=== PATIENT | female | born 1995 | race Caucasian/White ===

== ENCOUNTER 2017-03-23 01:09 | Emergency (ER) | payer MEDICAID, OTHER ==
[~2017-03-23] VITALS: Ht 160 cm; Wt 64.5 kg
[2017-03-23 01:12] VITALS: Ht 160 cm; Wt 64.5 kg
[2017-03-23] MEDS ORDERED: ACETAMINOPHEN 500 MG TAB PO STA (04:20)
--- NOTE | 2017-03-23 04:31 | ERD ---
ER Documentation Chief Complaint Date/Time DATE: 03/23/17 TIME: 04:30 Chief Complaint 4 wks , vag bleeding today (CAITY MATA NP) HPI 21-year-old female presents to emergency department for complaints of vaginal bleeding and pelvic pain started today. Patient approximately 4 weeks , 1 para 0 abortion0. Patient LMP 01/18/2017. Patient states she started to have vaginal bleeding today, started a spotting, no it got worse. Patient complaining of pelvic pain and cramping pain 4/10 scale, accompanying her symptoms. She did not take any medication stop his symptoms. (CAITY MATA NP) ROS All systems reviewed and are negative except as per history of present illness. (CAITY MATA NP) Medications Home Meds Reported Medications [none] Unknown Strength No Conflict Check 03/23/17 Allergies Allergies: Coded Allergies: No Known Allergy (Unverified , 03/05/15) PMhx/Soc Medical and Surgical Hx: pt denies Medical Hx, pt denies Surgical Hx History of Surgery: No Anesthesia Reaction: No Hx Neurological Disorder: No Hx Respiratory Disorders: No Hx Cardiac Disorders: No Hx Psychiatric Problems: No Hx Miscellaneous Medical Probl: No Hx Alcohol Use: No Hx Substance Use: No Hx Tobacco Use: No (CAITY MATA NP) FmHx Family History: No coronary disease, No diabetes, No other (CAITY MATA NP) Physical Exam Vitals Vital Signs Date Time Temp Pulse Resp B/P Pulse Ox O2 Delivery O2 Flow Rate FiO2 03/23/17 01:12 98.3 88 20 122/70 100 (CARLEY JACOME PA-C) Physical Exam GENERAL: The patient is well developed and appropriate for usual state of health, in no apparent distress. CHEST: Clear to auscultation bilaterally. There are no rales, wheezes or rhonchi. HEART: Regular rate and rhythm. No murmurs, clicks, rubs or gallops. No S3 or S4. ABDOMEN: Soft, nontender and nondistended. Good bowel sounds. No rebound or guarding. No gross peritonitis. No gross organomegaly or masses. No Grimes sign or McBurney point tenderness. BACK: No midline or flank tenderness. EXTREMITIES: Equal pulses bilaterally. There is no peripheral clubbing, cyanosis or edema. No focal swelling or erythema. Full range of motion. Grossly neurovascularly intact. NEURO: Alert and oriented. Cranial nerves 2-12 intact. Motor strength in all 4 extremities with 5/5 strength. Sensation grossly intact. Normal speech and gait. SKIN: There is no apparent rash or petechia. The skin is warm and dry. HEMATOLOGIC AND LYMPHATIC: There is no evidence of excessive bruising or lymphedema. No gross cervical, axillary, or inguinal lymphadenopathy. VAGINAL: Small amount of blood in the vaginal vault. The cervical os is closed. No adnexal tenderness or cervical motion tenderness noted. (CAITY MATA NP) Results 24 hrs Laboratory Tests Test 03/23/17 04:30 White Blood Count 12.710^3/ul Red Blood Count 4.5810^6/ul Hemoglobin 13.8g/dl Hematocrit 40.4% Mean Corpuscular Volume 88.2fl Mean Corpuscular Hemoglobin 30.1pg Mean Corpuscular Hemoglobin Concent 34.2g/dl Red Cell Distribution Width 12.5% Platelet Count 20448^3/UL Mean Platelet Volume 9.6fl Neutrophils % 76.6% Lymphocytes % 17.3% Monocytes % 5.4% Eosinophils % 0.2% Basophils % 0.2% Nucleated Red Blood Cells % 0.0/100WBC Neutrophils # 9.710^3/ul Lymphocytes # 2.210^3/ul Monocytes # 0.710^3/ul Eosinophils # 0.010^3/ul Basophils # 0.010^3/ul Nucleated Red Blood Cells # 0.010^3/ul Urine Color LT. RED Urine Clarity CLEAR Urine pH 5.5 Urine Specific [place] 1.010 Urine Ketones NEGATIVE Urine Nitrite NEGATIVE Urine Bilirubin NEGATIVE Urine Urobilinogen 0.2 E.U./dL Urine Leukocyte Esterase NEGATIVE Urine Microscopic RBC >200/HPF Urine Microscopic WBC 0-2/HPF Urine Hemoglobin 3+ Urine Glucose NEGATIVE% Urine Total Protein TRACE Beta HCG, Quantitative 4025.9mIU/ml Current Medications Medications (Trade) Dose Ordered Sig/Inés Route PRN Reason Start Time Stop Time Status Last Admin Dose Admin Acetaminophen (Tylenol Tab) 500 mg ONCE STAT PO 03/23/17 04:20 03/23/17 04:22 DC 03/23/17 04:34 (CARLEY JACOME PA-C) Results 24 hrs Patient was given medication for pain here in emergency department, after treatment, patient verbalized feeling much better. Patient's pain is improved. PROCEDURE: US OB. CLINICAL INDICATION: Vaginal bleeding in . TECHNIQUE: Transabdominal and endovaginal imaging of the gravid uterus is available for review COMPARISON: None available FINDINGS: There is a single intrauterine with a crown-rump length of 1.23 cm, giving an estimated gestational age of 6 weeks 2 days by ultrasound criteria. No heart tones are detected. The gestational sac is seen within the lower uterine segment/cervix. No subchorionic hemorrhage is identified. The ovaries are not well visualized. IMPRESSION: Single intrauterine with an estimated gestational age of 6 weeks 2 days by ultrasound criteria. No heart tones are detected. The gestational sac is located within the lower uterine segment/cervix. Findings are suspicious for early failed . RPTAT: HH .Bushra Whelan MD, MD Date Time Electronically viewed and signed by .Bushra Whelan MD, MD on 03/23/2017 05 :21 .G/ CC: CAITY MATA NP (CAITY MATA NP) Procedures/MDM Medical Decision Making: Patients vaginal bleeding is most likely consistent of possible threatened . Patient does not show any evidence of hypovolemic shock. Patients hemoglobin and hematocrit is stable. There is low suspicion for ectopic . GRIS results show intrauterine with out heart tone and is in the lower cervical segment possible indicating early failed . BetaHCG Quantitative is appropriate for The patient is Rh+, does not need RhoGAM this time. There is no signs of symptoms of dehydration. There is low suspicion for sepsis. Patient appears well and is hemodynamically stable. Disposition: Home. Condition: Stable Instructions: Patient is advised to do bed rest, avoid heavy lifting, and avoid having sex until cleared by OB doctor. Patient is advised to follow up with OB doctor or here at the ER in 48 hours for reevaluation of symptoms, repeat beta HCG quantitative and ultrasound. Patient is advised that is symptoms are worst, severe bleeding, dizziness, severe abdominal pain, fever, worst signs and symptoms to return to the emergency department immediately. (CAITY MATA NP) 630AM:Patient was signed out to me by VIRI Mata, pending Rh status. Patient was noted to be O+. RhoGam was not given. Patient was advised to follow-up in 1-2 days for repeat beta-hCG and/or repeat ultrasound. Patient was advised to follow-up with her [employer]. DISCHARGE: At this time, patient is stable for discharge and outpatient management. I have instructed the patient to follow-up with his/her primary care physician in 1-2 days. I have discussed with the patient the possibility of needing to see a specialist for further workup and imaging studies if symptoms persist. I have instructed the patient to promptly return to the ER for any new or worsening symptoms including increased pain, fever, nausea, vomiting, weakness or LOC. The patient and/or family expressed understanding of and agreement with this plan. All questions were answered. Home care instructions were provided. (CARLEY JACOME PA-C) Departure Diagnosis: Primary Impression: Vaginal bleeding in patient at less than 20 weeks gestation Additional Impression: Intrauterine Condition: Stable Patient Instructions: Bleeding During Early Additional Instructions: Patient is advised to do bed rest, avoid heavy lifting, and avoid having sex until cleared by OB doctor. Patient is advised to follow up with OB doctor or here at the ER in 48 hours for reevaluation of symptoms, repeat beta HCG quantitative and ultrasound. Patient is advised that is symptoms are worst, severe bleeding, dizziness, severe abdominal pain, fever, worst signs and symptoms to return to the emergency department immediately. CAITY MATA NP March 23, 2017 04:31 CARLEY JACOME PA-C March 23, 2017 06:46 CAITY MATA NP March 23, 2017 04:31 CARLEY JACOME PA-C March 23, 2017 06:46
[2017-03-23 04:44] LABS: ADD SCAN DIFF NO
[2017-03-23 04:50] LABS: ADD UMIC YES; URINE BILIRUBIN (Dip) NEGATIVE (NEGATIVE); URINE BLOOD (Dip) 3+ (NEGATIVE); URINE COLOR LT. RED (YELLOW); URINE GLUCOSE (Dip) NEGATIVE (NEGATIVE); URINE KETONES (Dip) NEGATIVE (NEGATIVE); URINE LEUKOCYTE ESTERASE (Dip) NEGATIVE (NEGATIVE); URINE NITRITE (Dip) NEGATIVE (NEGATIVE); URINE TOTAL PROTEIN (Dip) TRACE (NEGATIVE); URINE UROBILINOGEN (Dip) 0.2 E.U./dL (0.1-1.0)
[2017-03-23 04:51] LABS: BASOPHILS % 0.2 % (0.0-2.0); EOSINOPHILS % 0.2 % (0.0-7.0); HEMATOCRIT 40.4 % (37.0-47.0); HEMOGLOBIN 13.8 g/dl (12.0-16.0); LYMPHOCYTES # 2.2 10^3/ul (0.8-2.9); LYMPHOCYTES % 17.3 % (15.0-51.0); MEAN CORPUSCULAR HEMOGLOBIN 30.1 pg (29.0-33.0); MEAN CORPUSCULAR HGB CONC 34.2 g/dl (32.0-37.0); MEAN CORPUSCULAR VOLUME 88.2 fl (82.0-101.0); MEAN PLATELET VOLUME 9.6 fl (7.4-10.4); MONOCYTE # 0.7 10^3/ul (0.3-0.9); MONOCYTES % 5.4 % (0.0-11.0); NEUTROPHIL # 9.7 10^3/ul (1.6-7.5); NEUTROPHILS % 76.6 % (39.0-77.0); PLATELET COUNT 317 10^3/UL (140-415); RED BLOOD COUNT 4.58 10^6/ul (4.20-5.40); RED CELL DISTRIBUTION WIDTH 12.5 % (11.5-14.5); WHITE BLOOD COUNT 12.7 10^3/ul (4.8-10.8)
[2017-03-23 05:01] LABS: URINE RBCS >200 /HPF (0)
--- NOTE | 2017-03-23 05:21 | RADRPT ---
PROCEDURE: US OB. CLINICAL INDICATION: Vaginal bleeding in . TECHNIQUE: Transabdominal and endovaginal imaging of the gravid uterus is available for review COMPARISON: None available FINDINGS: There is a single intrauterine with a crown-rump length of 1.23 cm, giving an estimated ge stational age of 6 weeks 2 days by ultrasound criteria. No heart tones are detected. The gest ational sac is seen within the lower uterine segment/cervix. No subchorionic hemorrhage is identifie d. The ovaries are not well visualized. IMPRESSION: Single intrauterine with an estimated gestational age of 6 weeks 2 days by ultrasound crit eria. No heart tones are detected. The gestational sac is located within the lower uterine s egment/cervix. Findings are suspicious for early failed . RPTAT: HH .Bushra Whelan MD, MD Date Time Electronically viewed and signed by .Bushra Whelan MD, on 03/23/2017 05:21 .G/
[2017-03-23 07:04] VITALS: BP 118/67; PULSE 78; RESP 20; TEMP 98.3
== END 2017-03-23 07:05 | disposition home or self-care (01) ==
LOC: FTE 01:09
DX: O20.9 Hemorrhage in early pregnancy, unspecified (principal); R10.2 Pelvic and perineal pain; Z3A.01 Less than 8 weeks gestation of pregnancy
CPT/HCPCS: 76801; 76817; 81001; 84702; 85025; 86900; 86901; Z7610; 36415; 81003

== ENCOUNTER 2018-12-02 10:52 | Outpatient (CLI) | payer OTHER ==
[~2018-12-02] VITALS: Ht 157.5 cm; Wt 86.0 kg
[2018-12-02 11:24] VITALS: Ht 157.5 cm; Wt 86.0 kg
[2018-12-02 11:25] VITALS: BP 111/65; PULSE 85; RESP 20
--- NOTE | 2018-12-02 12:54 | PN ---
Triage Information Date/Time 12/02/2018 Reason for visit: DFM Weeks of Gestation 39 /Para Diabetes: none Hypertention: none Additional information 23 YO with IUP 39 + weeks who reported to L&D for decreased FM. she denies LOF per vagina or vaginal bleeding or UCs. her cervix is long and closed and she is very motivated to go home if NST and JASSI are reassuring and avoid IOL at this time. Objective Vital Signs Date Temp Pulse Resp B/P (MAP) Pulse Ox O2 O2 Flow FiO2 Time Delivery Rate 12/02/18 98.0 85 20 111/65 Room Air 11:25 (80) Heart Rate Comments category one Contractions: None Disposition: Discharge Assessment/Plan IUP 39 + weeks DFM she is motivated to avoid IOL plan is NST and JASSI NILDA STOVALL MD Dec 02, 2018 12:54
--- NOTE | 2018-12-02 13:13 | TRIAGE ---
OB Triage Datetime Report Generated by CPN: 12/02/2018 13:13 Datetime: 12/02/2018 11:16 EGA: 39.2 Arrived By: Ambulatory Arrived From: Home Chief Complaint: NO MOVEMENT SINCE 12/01 AT 2200 Movement: Decreased Rupture of Membranes: Denies Vaginal Discharge: Denies Recent Sexual Intercouse: Denies Abdominal Trauma: Not Applicable Provider Notified: YASHAPOUR Initial Plan: EFM,CALL DR YASHAPOUR Datetime: 12/02/2018 11:15 Maternal Assessment Level of Consciousness: Fully Conscious DTR's/Clonus: DTRs 2+; No Clonus Headache: Denies Blurred Vision: No Respiratory Effort: Unlabored; Regular Rhythm; Equal Expansion Breath Sounds, Left: Clear and Equal Breath Sounds, Right: Clear and Equal Nausea/Vomiting: Denies RUQ Epigastric Pain: Denies Facial Edema: None Temperature Route: Axillary Fall Risk Assessment History of Falling: (0) No Secondary Diagnosis: (0) No Ambulatory Aid: (0) Bedrest/Nurse Assist IV Therapy: (0) No Gait: (0) Normal/Bedrest/Immobile Mental Status: (0) Oriented to Own Ability Fall Score: 0 Fall Risk Score Definition: No Risk: No action required Datetime: 12/02/2018 11:00 Maternal Assessment Level of Consciousness: Fully Conscious DTR's/Clonus: DTRs 2+ Headache: Denies Blurred Vision: No Nausea/Vomiting: Denies RUQ Epigastric Pain: Denies Facial Edema: None Labor Evaluation Frequency: NONE Pattern: Normal: <= 5 Contractions in 10 Minutes Resting Tone [place]: Relaxed Heart Rate FHR Baseline Rate: 155 Monitor Mode: External US FHR Baseline Changes: No Baseline Change Variability: Moderate 6-25 bpm Accelerations: 10X10 Decelerations: None Category: Category I Pain Assessment Pain Scale: 0 Pain Presence: None/Denies Pain Location: Abdomen Pain Goal: 3 Datetime: 12/02/2018 10:50 Time of Arrival: 12/02/2018 10:50
== END 2018-12-02 13:00 | disposition home or self-care (01) ==
LOC: L-D 10:52 → OBT 10:52
PROVIDERS: ATTEND Specialist
DX: O36.8130 Decreased fetal movements, third trimester, not applicable or unspecified (principal); Z3A.39 39 weeks gestation of pregnancy
CPT/HCPCS: 76815; 76818; G0463

== ENCOUNTER 2018-12-06 07:18 | Outpatient (CLI) | payer OTHER ==
[~2018-12-06] VITALS: Ht 157.5 cm; Wt 86.3 kg
[2018-12-06 07:23] VITALS: Ht 157.5 cm; Wt 86.3 kg
[2018-12-06 07:24] VITALS: BP 113/60; PULSE 73; RESP 18
[2018-12-06] MEDS ORDERED: PREN-99 PO (07:27)
--- NOTE | 2018-12-06 08:55 | HP ---
Date/Time of Note Date/Time of Note DATE: 12/06/18 TIME: 08:53 OB - History Hx of Present Free Text/Dictation 23 YO G1 with IUP at 39.6 weeks reports with CC LOF per vagina earlier today, but not since then. she denies UCs or vaginal bleeding. she reports good FM. she does not want IOL, unless medically necessary. on exam pooling and Nitrazine was negative Care: Good Care Ultrasounds: Normal mid trimester US Obstetrical Complications: None Medical Complications: None Past Family/Social History * Past Medical, Surgical, Family and Obstetric Histories reviewed from chart. OB Admission Exam Vital Signs Vital Signs Vital Signs Date Temp Pulse Resp B/P (MAP) Pulse Ox O2 O2 Flow FiO2 Time Delivery Rate 12/06/18 98.8 73 18 113/60 07:24 (77) Physical Exam HEENT: WNL Heart: Rhythm Normal Lungs: Clear, Equal Abdomen: WNL Extremities: Normal Reflexes: Normal OB Assessment/Plan Other Assessment: IUP 39.6 weeks r/o SROM. Induction Method: other (will do ROM+) NILDA STOVALL MD Dec 06, 2018 08:55
--- NOTE | 2018-12-06 10:31 | TRIAGE ---
OB Triage Datetime Report Generated by CPN: 12/06/2018 10:31 Datetime: 12/06/2018 10:12 Labor Evaluation Frequency: x4 Monitor Mode: External Duration (sec)2399: 50-110 Quality: Mild Resting Tone [place]: Relaxed Heart Rate FHR Baseline Rate: 130 FHR Baseline Changes: No Baseline Change Variability: Moderate 6-25 bpm Accelerations: 15X15 Decelerations: None Category: Category I Datetime: 12/06/2018 09:29 Labor Evaluation Frequency: x4 Monitor Mode: External Duration (sec)2399: 70-90 Quality: Mild Pattern: Normal: <= 5 Contractions in 10 Minutes Resting Tone [place]: Relaxed Contraction Comments: pt denies feeling UCs Heart Rate FHR Baseline Rate: 135 Monitor Mode: External US FHR Baseline Changes: No Baseline Change Variability: Moderate 6-25 bpm Accelerations: 15X15 Decelerations: None Category: Category I Datetime: 12/06/2018 08:29 Labor Evaluation Frequency: x4 Monitor Mode: External Duration (sec)2399: 50-90 Quality: Mild Resting Tone [place]: Relaxed Heart Rate FHR Baseline Rate: 140 Monitor Mode: External US FHR Baseline Changes: No Baseline Change Variability: Moderate 6-25 bpm Accelerations: 15X15 Decelerations: None Category: Category I Datetime: 12/06/2018 07:30 Stage of : OB Triage Assessment Type: Triage Maternal Assessment Level of Consciousness: Fully Conscious DTR's/Clonus: DTRs 2+; No Clonus Headache: Denies Blurred Vision: No Respiratory Effort: Unlabored; Regular Rhythm; Equal Expansion Breath Sounds, Left: Clear and Equal Breath Sounds, Right: Clear and Equal Nausea/Vomiting: Denies RUQ Epigastric Pain: Denies Lower Extremities Edema: None Degree: None Upper Extremities Edema: None Degree: None Facial Edema: None Temperature Route: Oral Fall Risk Assessment History of Falling: (0) No Secondary Diagnosis: (0) No Ambulatory Aid: (0) Bedrest/Nurse Assist IV Therapy: (0) No Gait: (0) Normal/Bedrest/Immobile Mental Status: (0) Oriented to Own Ability Fall Score: 0 Fall Risk Score Definition: No Risk: No action required Labor Evaluation Frequency: x1 Monitor Mode: External Duration (sec)2399: 50 Quality: Mild Resting Tone [place]: Relaxed Heart Rate FHR Baseline Rate: 135 Monitor Mode: External US FHR Baseline Changes: No Baseline Change Variability: Moderate 6-25 bpm Accelerations: 15X15 Decelerations: None Category: Category I Pain Assessment Pain Scale: 0 Pain Presence: None/Denies Pain Type: N/A Datetime: 12/02/2018 12:58 Time of Arrival: 12/06/2018 07:13 EGA: 39.6 Arrived By: Ambulatory Arrived From: Home Chief Complaint: leaking from 0530 am Movement: Present Contractions: Denies/Absent Rupture of Membranes: Ruptured Vaginal Bleeding: None Vaginal Discharge: Denies Recent Sexual Intercouse: Denies Abdominal Trauma: Not Applicable Patient Complaints: None Initial Plan: ext FM Datetime: 12/02/2018 11:16 EGA: 39.2 Datetime: 12/02/2018 11:15 Fall Score: 0 Fall Risk Score Definition: No Risk: No action required
== END 2018-12-06 10:25 | disposition home or self-care (01) ==
LOC: OBT 07:18 → L-D 07:18 → OBT 10:25
PROVIDERS: ATTEND Specialist
DX: O41.93X0 Disorder of amniotic fluid and membranes, unspecified, third trimester, not applicable or unspecified (principal); Z3A.39 39 weeks gestation of pregnancy
CPT/HCPCS: 84112; Z7500; G0463

== ENCOUNTER 2018-12-09 08:17 | Inpatient (IN) | payer OTHER ==
[~2018-12-09] VITALS: Ht 157.5 cm; Wt 86.5 kg
[~2018-12-09 08:17] MED LIST: PREN-99 PO
[2018-12-09 08:32] VITALS: BP 109/65; PULSE 69; RESP 18
[2018-12-09 08:33] VITALS: Ht 157.5 cm; Wt 86.5 kg
--- NOTE | 2018-12-09 09:24 | TRIAGE ---
OB Triage Datetime Report Generated by CPN: 12/09/2018 09:24 Datetime: 12/09/2018 09:00 Stage of : OB Triage Level of Consciousness: Fully Conscious Frequency: 3-7 Monitor Mode: External Duration (sec)2399: 90-180 Quality: Moderate Resting Tone [place]: Relaxed FHR Baseline Rate: 135 Monitor Mode: External US Variability: Moderate 6-25 bpm Accelerations: 15X15 Decelerations: None Category: Category I Pain Scale: 7 Pain Presence: Intermittent Pain Type: Cramping Pain Location: Abdomen Pain Goal: 3 Pain Relief Measures: Comfort Measures Membrane Status: Intact Vaginal Bleeding: None Datetime: 12/09/2018 08:38 Dilatation (cms): 2.0 Effacement (%): 70 Station: -3 Exam By: mary Vaginal Bleeding: None Cervix, Consistency: Soft Cervix, Position: Posterior Datetime: 12/09/2018 08:35 Assessment Type: Triage Level of Consciousness: Fully Conscious DTR's/Clonus: DTRs 2+; No Clonus Headache: Denies Blurred Vision: No Respiratory Effort: Unlabored; Regular Rhythm; Equal Expansion Breath Sounds, Left: Clear and Equal Breath Sounds, Right: Clear and Equal Nausea/Vomiting: Denies RUQ Epigastric Pain: Denies Lower Extremities Edema: None Degree: None Upper Extremities Edema: None Degree: None Facial Edema: None History of Falling: (0) No Secondary Diagnosis: (0) No Ambulatory Aid: (0) Bedrest/Nurse Assist IV Therapy: (0) No Gait: (0) Normal/Bedrest/Immobile Mental Status: (0) Oriented to Own Ability Fall Score: 0 Fall Risk Score Definition: No Risk: No action required Datetime: 12/09/2018 08:34 Time of Arrival: 12/09/2018 08:12 EGA: 40.2 Arrived By: Ambulatory Arrived From: Home Chief Complaint: PT HERE C/O UC'S Movement: Present Contractions: Irregular Rupture of Membranes: Denies Vaginal Bleeding: None Vaginal Discharge: Present Recent Sexual Intercouse: Denies Abdominal Trauma: Not Applicable Patient Complaints: Contractions; Cramping; Back Pain Time Provider Notified: 12/09/2018 09:07 Provider Notified: MICAELA Initial Plan: SVE/BPP Datetime: 12/09/2018 08:28 Monitor Mode: External Monitor Mode: External US
[2018-12-09] MEDS: LACTATED RINGER'S 1,000 ML IV SCH ×3 (09:49→23:11)
[2018-12-09] MEDS ORDERED: CARBOPROST 250 MCG INJ IM PRN (10:00)
[2018-12-09] MEDS ORDERED: LIDOCAINE 1% (MPF) 30 ML INJ INJ PRN (10:00)
[2018-12-09] MEDS ORDERED: METHYLERGONOVINE 0.2 MG INJ IM PRN (10:00)
[2018-12-09] MEDS ORDERED: IBUPROFEN 600 MG TAB PO PRN (10:00)
[2018-12-09] MEDS ORDERED: MISOPROSTOL 200 MCG TAB PR PRN (10:00)
[2018-12-09] MEDS ORDERED: OXYTOCIN 30 UNITS/LR 500 ML IV SCH ×3 (10:00→17:30)
[2018-12-09] MEDS ORDERED: OXYTOCIN 30 UNITS/LR 500 ML IV PRN (10:00)
[2018-12-10] MEDS: BUTORPHANOL 2 MG INJ IV PRN ×2 (04:13→06:29)
[2018-12-10] MEDS: LACTATED RINGER'S 1,000 ML IV SCH ×2 (07:30→17:40)
--- NOTE | 2018-12-10 10:36 | HP ---
Date/Time of Note Date/Time of Note DATE: 12/10/18 TIME: 10:29 OB - History Hx of Present Free Text/Dictation 23y.o A1 here at triage in early labor at 40w2d with intact membrane Initial VE 2/70/-3 EFM CAT I tracing, uc 3-7 min Had unevenful course GBS neg admitted for expecatant mamagement poss augmentation Chief Complaint: u.c Estimated Due Date: Dec 07, 2018 : 2 Para: 0 Spontaneous : 1 Therapeutic : 0 Care: Good Care Ultrasounds: Normal mid trimester US Obstetrical Complications: None Medical Complications: None Past Family/Social History * Past Medical, Surgical, Family and Obstetric Histories reviewed from chart. Blood Type: O+ Rubella: immune RPR/VDRL: Negative GBS Status: Negative HBsAG: Negative OB Admission Exam Vital Signs Vital Signs Vital Signs Date Temp Pulse Resp B/P (MAP) Pulse Ox O2 O2 Flow FiO2 Time Delivery Rate 12/09/18 97.7 69 18 109/65 Room Air 08:32 (80) Physical Exam HEENT: WNL Heart: Rhythm Normal Lungs: Clear, Equal Abdomen: WNL Extremities: Normal Reflexes: Normal Cervical Dilatation: 2cm Effacement: 75% Station: -2 Membranes: Intact Amniotic Fluid: Unevaluable Heart Rate: 130's Accelerations: Accelerations Present Decelerations: No Decelerations Varibility: Moderate Contractions on Admission: < 5 Minutes Apart Intensity: Mild Last 72 hours Lab Results CBC & BMP 12/09/18 09:35 OB Assessment/Plan Other Assessment: IUP 40w2d in early labor Plan: Expectant Management, Other (pitocin augmentation) TOI HINOJOSA MD Dec 10, 2018 10:36
[2018-12-10] MEDS ORDERED: ERYTHROMYCIN 1 GM OPH OINT ONE (11:35)
[2018-12-10] MEDS ORDERED: PHYTONADIONE 1 MG/0.5 ML SYG ONE (11:35)
[2018-12-10 12:00] VITALS: BP 104/61; PULSE 78; RESP 18
[2018-12-10] MEDS ORDERED: OXYTOCIN 30 UNITS/LR 500 ML IV SCH (12:04)
[2018-12-10 12:30] VITALS: BP 115/60; PULSE 70; RESP 18
[2018-12-10] MEDS ORDERED: METHYLERGONOVINE 0.2 MG INJ IM PRN (12:30)
[2018-12-10] MEDS ORDERED: MISOPROSTOL 200 MCG TAB PR PRN (12:30)
[2018-12-10] MEDS ORDERED: NACL 0.9% 3 ML SYG IV SCH (12:30)
[2018-12-10] MEDS ORDERED: BENZOCAINE 20% 56 ML SPRAY TOP PRN (12:30)
[2018-12-10] MEDS: IBUPROFEN 600 MG TAB PO SCH ×3 (12:30→23:57)
[2018-12-10] MEDS ORDERED: CARBOPROST 250 MCG INJ IM PRN (12:30)
[2018-12-10] MEDS ORDERED: LANOLIN HPA 1 PKT TOP PRN (12:30)
[2018-12-10] MEDS ORDERED: WITCH HAZEL/GLYCERIN PAD PR PRN (12:30)
[2018-12-10] MEDS ORDERED: OXYTOCIN 30 UNITS/LR 500 ML IV PRN (12:30)
[2018-12-10 15:55] VITALS: BP 115/71; PULSE 80; RESP 18
--- NOTE | 2018-12-10 16:13 | LDN ---
Date/Time of Note Date/Time of Note DATE: 12/10/18 TIME: 16:10 Delivery Summary of normal female infant Weeks of Gestation 40w3d Placenta Delivered: Spontaneously Meconium: none Episiotomy: No Perineal laceration: 2 Laceration repair: 00ch gut Anesthesia type: Local Estimated blood loss: 200 Sponge & Needle done & correct: Yes All needle counts correct: Yes Any foreign bodies felt in the: No Infant Delivery Information Sex Infant Sex: female Apgars 1 Minute: 9 5 Minute: 9 Suctioning Nose & mouth suctioned at delfin: Yes Delee suction performed: No Umbilical Cord Umbilical cord with: 3 Vessels Cord presentations: nuchal cord Nuchal cord present X: 1 TOI HINOJOSA MD Dec 10, 2018 16:13
--- NOTE | 2018-12-10 17:04 | NUR ---
EOSS: PT RECEIVED FROM LD AT 1200, V/S STABLE AND WNL, NO C/O PAIN AFTER TRANSFERRED TO THIS FLOOR, FUNDUS FIRM, VAGINAL BLEEDING WNL, POST DELIVERY VOIDING *2 WITHOUT DIFFICULTY, BREAST FED BABY BONDING WELL WITH BABY
[2018-12-10 19:35] VITALS: BP 98/54; PULSE 89; RESP 18
[2018-12-11] VITALS: BP 105/55; PULSE 90; RESP 18
[2018-12-11] MEDS: LACTATED RINGER'S 1,000 ML IV SCH (01:40)
[2018-12-11 04:40] VITALS: BP_SYST 52; PULSE 86; RESP 18
[2018-12-11] MEDS: IBUPROFEN 600 MG TAB PO SCH ×4 (06:00→23:44)
[2018-12-11 07:45] VITALS: PULSE 68; RESP 20
[2018-12-11] MEDS ORDERED: METHYLERGONOVINE 0.2 MG INJ IM PRN (08:00)
[2018-12-11] MEDS ORDERED: OXYCODONE/ASPIRIN (4.88/325) TAB PO PRN ×2 (08:00)
[2018-12-11] MEDS ORDERED: CARBOPROST 250 MCG INJ IM PRN (08:00)
[2018-12-11] MEDS ORDERED: LANOLIN HPA 1 PKT TOP PRN (08:00)
[2018-12-11] MEDS ORDERED: BENZOCAINE 20% 56 ML SPRAY TOP PRN (08:00)
[2018-12-11] MEDS ORDERED: WITCH HAZEL/GLYCERIN PAD PR PRN (08:00)
[2018-12-11] MEDS ORDERED: ZOLPIDEM 5 MG TAB PO PRN (08:00)
[2018-12-11] MEDS ORDERED: OXYTOCIN 30 UNITS/LR 500 ML IV PRN (08:00)
[2018-12-11] MEDS ORDERED: MISOPROSTOL 200 MCG TAB PR PRN (08:00)
[2018-12-11] MEDS: SENNA/DOCUSATE NA (8.6MG/50MG) TAB PO SCH ×2 (09:35→21:08)
[2018-12-11 15:38] VITALS: BP 104/56; PULSE 80
--- NOTE | 2018-12-11 17:37 | QN ---
Documentation Comment had bowel movement vss afebrile fundus firm calf neg lochia min A stable post #1 P discharge in am TOI HINOJOSA MD Dec 11, 2018 17:36
--- NOTE | 2018-12-11 18:23 | NUR ---
EOSS; Vital signs stable, denies any pain or discomfort at this time. Bonding well with .
[2018-12-11 20:00] VITALS: BP 121/71; PULSE 80; RESP 18
[2018-12-12 04:10] VITALS: BP 112/71; PULSE 68; RESP 18
--- NOTE | 2018-12-12 05:18 | NUR ---
EOSS: Pt is in stable condition. No distress noted. Fundus firm with small amount lochia noted. Encouraged Pt to hand express breast, set up breast feeding pump and encouraged to pump every 2-3 hours for 15-20 mins. Pt requested formula for baby, explained risks and pace bottle feeding. Bonding well with Baby.
[2018-12-12] MEDS: IBUPROFEN 600 MG TAB PO SCH ×2 (05:36→12:03)
[2018-12-12 08:00] VITALS: BP 104/52; PULSE 69; RESP 18
[2018-12-12] MEDS ORDERED: DIPHTH/TET/ACEL PERTUSS (ADULT) 0.5 ML VIAL IM* ONE (09:00)
[2018-12-12] MEDS: SENNA/DOCUSATE NA (8.6MG/50MG) TAB PO SCH (09:21)
[2018-12-12 15:36] VITALS: BP 120/70; PULSE 76; RESP 18
--- NOTE | 2018-12-12 16:15 | DS ---
Date/Time of Note Date/Time of Note DATE: 12/12/18 TIME: 16:13 Obstetrical Discharge Record Final Diagnosis Final Diagnosis: Term delivered Other Final Diagnosis 23-year-old status post normal vaginal delivery at 40 weeks and 2 days. Her course was unremarkable. She is ambulating and tolerating regular diet. She is voiding without difficulty. Pain is controlled on current medication. She is afebrile, vital signs stable. She is doing breast-feeding, baby is doing well, at bedside. She is bonding well with . She discharged home in stable condition with follow-up with her primary OB. Prescription and instruction given. Vaginal Delivery Obstetrical Delivery: Spontaneous Condition on Discharge Physical Assessment Last Vitals: Vital Signs Date Temp Pulse Resp B/P (MAP) Pulse Ox O2 O2 Flow FiO2 Time Delivery Rate 12/12/18 98.6 76 18 120/70 Room Air 15:36 (87) Voiding: Yes Bowel Movement: Yes Breast: Soft, non-tender Fundus: Firm Calf Tenderness: No Patient Condition: Stable ONEIDA MAYA Dec 12, 2018 16:15
--- NOTE | 2018-12-12 16:21 | PN ---
Date/Time of Note Date/Time of Note DATE: 12/12/18 TIME: 16:15 OB Subjective Subjective Subjective PPD# 2 Patient is doing well. She denies nausea, vomiting, shortness of breath, chest pain, headache. She has been ambulating without difficulty, tolerating regular diet. Pain is well controlled on current medications OB Objective Objective Objective General: AAO X 3, comfortable, NAD, appropriate mood and affect. ABD: +BS. Soft, non-tender. Uterus 2 cm below umbilicus Flank: No CVA tenderness (B/L) LE: Mild edema. No clubbing, cyanosis, thigh or calf tenderness (B/L). Homans 'sign is negative OB Assessment/Plan Other plan: 23-year-old s/p normal vaginal delivery at 40 weeks and 2 days. PPD#2 - AF, VSS - Baby is doing well, at bed side. She is bonding well - Contraception methods with R/B/A/FR discussed - Continue care - Discharge home - Rx and instruction given - Follow up in 2 and 6 weeks at clinic ONEIDA MAYA Dec 12, 2018 16:20
--- NOTE | 2018-12-12 16:45 | NUR ---
DISCHARGE INSTRUCTION GIVEN, PT VERBALIZED UNDERSTANDING
== END 2018-12-12 17:00 | disposition home or self-care (01) | DRG 807 ==
LOC: OBT 08:17 → L-D 08:18 → OBT 09:05 → PP1 12-10 12:03
PROVIDERS: ADMIT Specialist; ATTEND Specialist
PROC: 10E0XZZ Delivery of Products of Conception, External Approach (ICD-10-PCS; principal; 2018-12-10)
PROC: 0HQ9XZZ Repair Perineum Skin, External Approach (ICD-10-PCS; 2018-12-10)
DX: O69.81X0 Labor and delivery complicated by cord around neck, without compression, not applicable or unspecified (principal); O70.9 Perineal laceration during delivery, unspecified; Z37.0 Single live birth; Z3A.40 40 weeks gestation of pregnancy
CPT/HCPCS: 76818; 85025; 85610; 85730; 86592; 86900; 86901; 87340; J3430; G0463; J0595; J2590; J7120

== ENCOUNTER 2019-01-09 22:31 | Emergency (ER) | payer OTHER ==
[~2019-01-09] VITALS: Ht 157.5 cm; Wt 76.5 kg
[2019-01-09 22:39] VITALS: Ht 157.5 cm; Wt 76.5 kg
--- NOTE | 2019-01-10 00:51 | ERD ---
ER Documentation Chief Complaint Chief Complaint C/O ON AND OFF EPIGASTRIC PAIN X1 WEEK HPI This is a 23-year-old female presents emergency department with complaints of on and off epigastric pain/tenderness for about a week. Associated with no vomiting. Stated that she had a baby last 12/10/2018 via vaginal delivery. Not breast-feeding. Was informed by her visiting nurse that she might have a gallstone. LMP: Stated that he was before her vaginal delivery. M1. Denies headache, head injury, loss of consciousness, dizziness, neck pain, neck stiffness, throat pain, difficulty swallowing, difficulty breathing lying flat, shoulder pain, chest pain, back pain, constipation, diarrhea, urinary symptoms, or possibility being , loss of bowel and bladder control, trauma, injury, falls, difficulty walking due to pain, numbness or tingling sensation, calf pain, recent travel, recent major surgery in the last 3 weeks, calf pain, recent long travel, recent exposure to any illness, recent antibiotic use in the last 3 months, fever, chills, seizures. Past medical history: Denies. Surgical history: Denies. Social: Denies smoking, use of alcoholic beverages, use of illegal drugs. ROS All systems reviewed and are negative except as per history of present illness. Medications Home Meds Active Scripts Ibuprofen* (Motrin*) 800 Mg Tab, 800 MG PO Q6H PRN for PAIN AND OR ELEVATED TEMP, #30 TAB Prov:KRYSTINA JOSE 01/10/19 Tramadol HCl (Tramadol HCl) 50 Mg Tablet, 50 MG PO Q4 PRN for SEVERE PAIN LEVEL 7-10, #12 TAB Prov:KRYSTINA JOSE 01/10/19 Metoclopramide* (Reglan*) 10 Mg Tablet, 10 MG PO Q6 PRN for NAUSEA AND/OR VOMITING, #20 TAB Prov:HENRYILAKRYSTINA BOOTH 01/10/19 Dicyclomine HCl (Dicyclomine HCl) 10 Mg Capsule, 10 MG PO TID PRN for ABDOMINAL CRAMPING, #20 CAP Prov:PASILAKRYSTINA BOOTH F 01/10/19 Cephalexin* (Keflex*) 500 Mg Capsule, 500 MG PO TID for 5 Days, CAP Prov:KRYSTINA JOSE 01/10/19 Reported Medications Vit #76/Iron,Carb/FA (Pnv 29-1 Tablet) 1 Each Tablet, 1 EACH PO DAILY, TAB 12/06/18 Allergies Allergies: Coded Allergies: No Known Allergy (Unverified , 01/10/19) PMhx/Soc Medical and Surgical Hx: pt denies Medical Hx, pt denies Surgical Hx History of Surgery: No Anesthesia Reaction: No Hx Neurological Disorder: No Hx Respiratory Disorders: No Hx Cardiac Disorders: No Hx Psychiatric Problems: No Hx Miscellaneous Medical Probl: No Hx Alcohol Use: No Hx Substance Use: No Hx Tobacco Use: No Smoking Status: Never smoker Physical Exam Vitals Physical Exam Const: No acute distress Head: Atraumatic Eyes: Normal Conjunctiva ENT: Normal External Ears, Nose and Mouth. Neck: Full range of motion. No meningismus. Resp: Clear to auscultation bilaterally. No retractions noted. No accessory muscle use in breathing. Cardio: Regular rate and rhythm, no murmurs Abd: Soft, non tender, non distended. Normal bowel sounds has right upper abdominal tenderness to light and deep palpation. No vesicular lesions to. Ch est area. Examined with female face cleaner, RN. Negative Koko sign (heel jar test). Negative psoas sign. Negative Rovsing sign. No CVA tenderness. Skin: No petechiae or rashes. Color appears normal for ethnicity. Back: No midline or flank tenderness Ext: No cyanosis, or edema Neur: Awake and alert. No neurological deficits. Psych: Normal Mood and Affect Result Diagram: 01/10/1910801/10/19108 Results 24 hrs Laboratory Tests Test 01/10/19 01:09 01/10/19 01:32 White Blood Count 9.3 10^3/ul Red Blood Count 4.79 10^6/ul Hemoglobin 13.8 g/dl Hematocrit 42.7 % Mean Corpuscular Volume 89.1 fl Mean Corpuscular Hemoglobin 28.8 pg Mean Corpuscular Hemoglobin Concent 32.3 g/dl Red Cell Distribution Width 13.2 % Platelet Count 280 10^3/UL Mean Platelet Volume 9.8 fl Immature Granulocytes % 0.400 % Neutrophils % 74.2 % Lymphocytes % 18.7 % Monocytes % 6.2 % Eosinophils % 0.4 % Basophils % 0.1 % Nucleated Red Blood Cells % 0.0 /100WBC Immature Granulocytes # 0.040 10^3/ul Neutrophils # 6.9 10^3/ul Lymphocytes # 1.7 10^3/ul Monocytes # 0.6 10^3/ul Eosinophils # 0.0 10^3/ul Basophils # 0.0 10^3/ul Nucleated Red Blood Cells # 0.0 10^3/ul Urine Color YELLOW Urine Clarity SLIGHTLY CLOUDY Urine pH 7.0 Urine Specific [place] 1.009 Urine Ketones NEGATIVE mg/dL Urine Nitrite NEGATIVE mg/dL Urine Bilirubin NEGATIVE mg/dL Urine Urobilinogen NEGATIVE mg/dL Urine Leukocyte Esterase 3+ Jackie/ul Urine Microscopic RBC 2 /HPF Urine Microscopic WBC 38 /HPF Urine Squamous Epithelial Cells FEW /HPF Urine Bacteria FEW /HPF Urine Mucus FEW /HPF Urine Hemoglobin NEGATIVE mg/dL Urine Glucose NEGATIVE mg/dL Urine Total Protein NEGATIVE mg/dl Sodium Level 143 mmol/L Potassium Level 3.9 mmol/L Chloride Level 105 mmol/L Carbon Dioxide Level 29 mmol/L Anion Gap 9 Blood Urea Nitrogen 8 mg/dl Creatinine 0.50 mg/dl Est Glomerular Filtrat Rate mL/min > 60 mL/min Glucose Level 118 mg/dl Calcium Level 9.6 mg/dl Total Bilirubin 0.2 mg/dl Direct Bilirubin 0.00 mg/dl Indirect Bilirubin 0.2 mg/dl Aspartate Amino Transf (AST/SGOT) 433 IU/L Alanine Aminotransferase (ALT/SGPT) 252 IU/L Alkaline Phosphatase 241 IU/L Total Protein 7.3 g/dl Albumin 4.2 g/dl Globulin 3.10 g/dl Albumin/Globulin Ratio 1.35 Amylase Level 70 U/L Lipase 78 U/L POC Beta HCG, Qualitative NEGATIVE Current Medications Medications Dose Sig/Inés Start Time Status Last (Trade) Ordered Route PRN Stop Time Admin Dose Reason Admin Sodium 1,000 ml @ Q1H ONCE 01/10/19 DC 01/10/19 Chloride 1,000 mls/hr IV 01:30 01:38 01/10/19 02:29 Morphine 4 mg ONCE STAT 01/10/19 DC Sulfate IV 01:02 (morphine) 01/10/19 01:04 Ondansetron 4 mg ONCE STAT 01/10/19 DC HCl (Zofran IV 01:02 Inj) 01/10/19 01:04 Cephalexin 500 mg ONCE ONCE 01/10/19 DC 01/10/19 (Keflex) PO 04:30 04:21 01/10/19 04:31 Procedures/MDM Diagnostic tests: POC urine : Negative. UTI. Urinalysis: UTI. Blood works: Elevated liver enzymes. Gallbladder ultrasound: Cholelithiasis. Chest x-ray: No evidence of acute cardiopulmonary disease. Treatment: Saline lock. Normal saline IV bolus. Morphine IV. Zofran IV. Re-evaluation: Negative Grimes sign. Negative Koko sign (heel jar test). Negative psoas sign. Negative Rovsing sign. No CVA tenderness. Able to jump twice without developing lower abdominal pain. No episode of emesis here in emergency department. Lung sounds are clear to auscultation. No accessory muscle use in breathing. Stated that she feels much comfortable at this time and that she is ready to go home. Differential diagnosis I have low suspicion for sepsis, fevers respiratory infection, pneumothorax, pneumonia, hemothorax, pancreatitis, diverticulitis, diverticulitis with abscess, appendicitis, bowel obstruction, pyelonephritis, obstructing kidney stones, septic stone, hemorrhaging. This case was discussed with my supervising physician, Dr. Chester Dodson who agreed my medical decision making. Final diagnosis: Biliary colic. Cholelithiasis. UTI. Prescription: Cutler p.o. Bentyl p.o. Zofran p.o. Follow-up with PCP in the next 24-48 hours. Come back here in the emergency department for any new symptoms or any worsening symptoms. All questions and concerns were answered. Patient and family members verbalized understanding and agreed with plan of care. Hemodynamically stable on discharge. Departure Diagnosis: Primary Impression: Biliary colic Additional Impressions: UTI (urinary tract infection) Abdominal pain Cholelithiasis Condition: Stable Additional Instructions: Follow-up with PCP in the next 24-48 hours. Come back here in the emergency department for any new symptoms or any worsening symptoms. KRYSTINA JOSE Jan 10, 2019 00:51
[2019-01-10] MEDS ORDERED: morphine 4 MG/ML VIAL IV STA (01:02)
[2019-01-10] MEDS ORDERED: ONDANSETRON 4 MG INJ IV STA (01:02)
[2019-01-10] MEDS ORDERED: SOD CHLORIDE 0.9% 1,000 ML IV ONE (01:30)
[2019-01-10] MEDS ORDERED: CEPH-443 PO (04:10)
[2019-01-10] MEDS ORDERED: DICY10CA40 PO (04:11)
[2019-01-10] MEDS ORDERED: METO10TA92 PO (04:12)
[2019-01-10] MEDS ORDERED: TRAM50TA2 PO (04:13)
[2019-01-10] MEDS ORDERED: IBUP800T48 PO (04:14)
[2019-01-10] MEDS ORDERED: CEPHALEXIN 500 MG CAP PO ONE (04:30)
[2019-01-10 04:31] VITALS: BP 106/59; PULSE 85; RESP 20
== END 2019-01-10 04:33 | disposition home or self-care (01) ==
LOC: FTE 22:31
DX: K80.20 Calculus of gallbladder without cholecystitis without obstruction (principal); N39.0 Urinary tract infection, site not specified
CPT/HCPCS: 36415; 71046; 76705; 80053; 81001; 81025; 82150; 83690; 85025; J7030; Z7502; Z7610

== ENCOUNTER 2019-02-14 08:57 | Day surgery (SDC) | payer OTHER ==
[~2019-02-14] VITALS: Ht 157.5 cm; Wt 70.4 kg
[2019-02-14] VITALS (14 sets, daily range): BP systolic 102–128; BP diastolic 58–79; PULSE 54–99; RESP 15–24; Ht 157.5 cm; Wt 70.4 kg
[~2019-02-14 08:57] MED LIST changes: +CEPH-443 PO; +DICY10CA40 PO; +IBUP800T48 PO; +METO10TA92 PO; +NEOSTIGMINE 10 MG INJ ONE; +TRAM50TA2 PO
[2019-02-14] MEDS ORDERED: SOD CHLORIDE 0.9% 1,000 ML IV SCH (12:00)
[2019-02-14] MEDS ORDERED: CEFAZOLIN 2 GM/50 ML (PMX) 50 ML IVPB SCH (12:00)
[2019-02-14] MEDS ORDERED: ROCURONIUM 50 MG INJ ONE (12:37)
[2019-02-14] MEDS ORDERED: PROPOFOL 20 ML ONE (12:37)
[2019-02-14] MEDS ORDERED: GLYCOPYRROLATE 0.4 MG INJ ONE (12:37)
[2019-02-14] MEDS ORDERED: CEFAZOLIN 1 GM INJ ONE (12:37)
[2019-02-14] MEDS ORDERED: FENTAnyl 50 MCG/ML VIAL ONE (12:38)
[2019-02-14] MEDS ORDERED: ONDANSETRON 4 MG INJ ONE (12:38)
[2019-02-14] MEDS ORDERED: MIDAZOLAM 1 MG/ML 2 ML INJ ONE (12:38)
[2019-02-14] MEDS ORDERED: DEXAMETHASONE 4 MG/ML 5 ML INJ ONE (12:38)
--- NOTE | 2019-02-14 13:22 | PREAC ---
Date/Time of Note Date/Time of Note DATE: 02/14/19 TIME: 13:21 Anesthesia Eval and Record Evaluation Time Pre-Procedure Interview DATE: 02/14/19 TIME: 13:21 Age 23 Sex female NPO: 8 hrs Preoperative diagnosis symptomatic cholelithiasis Planned procedure LAP ELEANOR Past Medical History Past Medical History: None Surgery & Anesthesia Issues No known issue Meds Anticoagulation: No Beta Zach within 24 hr: No Reason Beta Zach not given: Pt. not on B-Zach Discontinued Reported Medications Vit #76/Iron,Carb/FA (Pnv 29-1 Tablet) 1 Each Tablet, 1 EACH PO DAILY, TAB 12/06/18 Discontinued Scripts Ibuprofen* (Motrin*) 800 Mg Tab, 800 MG PO Q6H PRN for PAIN AND OR ELEVATED TEMP, #30 TAB Prov:PASILABANKRYSTINA F 01/10/19 Tramadol HCl (Tramadol HCl) 50 Mg Tablet, 50 MG PO Q4 PRN for SEVERE PAIN LEVEL 7-10, #12 TAB Prov:KRYSTINA JOSE 01/10/19 Metoclopramide* (Reglan*) 10 Mg Tablet, 10 MG PO Q6 PRN for NAUSEA AND/OR VOMITING, #20 TAB Prov:HENRYILAKRYSTINA BOOTH 01/10/19 Dicyclomine HCl (Dicyclomine HCl) 10 Mg Capsule, 10 MG PO TID PRN for ABDOMINAL CRAMPING, #20 CAP Prov:HENRYILABANKRYSTINA F 01/10/19 Cephalexin* (Keflex*) 500 Mg Capsule, 500 MG PO TID for 5 Days, CAP Prov:HENRYILALEOBARDOKRYSTINA F 01/10/19 Current Medications Sodium Chloride 1,000 ml @ 75 mls/hr [id number] IV ; Start 02/14/19 at 12:00; Stop 02/14/19 at 23:00 Cefazolin Sodium/ Dextrose 50 ml @ 100 mls/hr PRE-OP IVPB ; Start 02/14/19 at 12:00 Meds reviewed: Yes Allergies Coded Allergies: No Known Allergy (Unverified , 02/14/19) Allergies Reviewed: Yes Labs/Studies Labs Reviewed: Reviewed by anesthesiologist test: Negative Pre-procedure Exam Last vitals Vital Signs Date Temp Pulse Resp B/P (MAP) Pulse Ox O2 O2 Flow FiO2 Time Delivery Rate 02/14/19 97.9 65 16 102/64 95 Room Air 09:54 (77) Airway: Adequate mouth opening, Adequate thyromental dist Mallampati: Mallampati II Teeth: Normal Lung: Normal Heart: Normal ASA Physical Status ASA physical status: 1 Emergency: None Planned Anesthetic General/MAC: ETT Nerve block: TAP (bilateral) Planned Pain Management Single shot nerve block, Parenteral pain med Pre-operative Attestations Prior to commencing anesthesia and surgery, the patient was re-evaluated, there was verification of: *The patient's identity *The results of appropriate recent lab work and preoperative vital signs *The above evaluation not changing prior to induction *Anesthetic plan, risk benefits, alternative and complications discussed with patient/family; questions answered; patient/family understands, accepts and wishes to proceed. Ismael Brown M.D. Feb 14, 2019 13:22
[2019-02-14] MEDS ORDERED: ROPIVACAINE 0.5 % 30 ML VIAL ONE (13:26)
[2019-02-14] MEDS ORDERED: HYDROmorphONE 1 MG/5 ML IV SYRINGE IV PRN ×3 (13:30)
[2019-02-14] MEDS ORDERED: MEPERIDINE 25 MG INJ IV PRN (13:30)
[2019-02-14] MEDS ORDERED: EPHEDrine SULFATE 50 MG/5 ML SYG IV PRN (13:30)
[2019-02-14] MEDS ORDERED: MIDAZOLAM 1 MG/ML 2 ML INJ IV PRN (13:30)
[2019-02-14] MEDS ORDERED: ONDANSETRON 4 MG INJ IV PRN (13:30)
[2019-02-14] MEDS ORDERED: IPRATROPIUM (NEB) 0.5 MG/2.5 ML AMP HHN PRN (13:30)
[2019-02-14] MEDS ORDERED: TRIMETHOBENZAMIDE 100 MG/ML VIAL IM PRN (13:30)
[2019-02-14] MEDS ORDERED: hydrALAzine 20 MG INJ IV PRN (13:30)
[2019-02-14] MEDS ORDERED: LABETALOL HCL 20MG INJ IV PRN (13:30)
[2019-02-14] MEDS ORDERED: DIPHENHYDRAMINE 50 MG INJ IV PRN (13:30)
[2019-02-14] MEDS ORDERED: OXYCODONE/ACETAMINOPHEN (5/325) TAB PO PRN ×2 (13:30)
[2019-02-14] MEDS ORDERED: ALBUTEROL 0.083% (NEB) 2.5 MG/3 ML AMP HHN PRN (13:30)
[2019-02-14] MEDS ORDERED: FENTAnyl 50 MCG/ML VIAL IV PRN ×2 (13:30)
--- NOTE | 2019-02-14 14:14 | OPR ---
Date/Time of Note Date/Time of Note DATE: 02/14/19 TIME: 14:12 Operative Report Procedure Date: Feb 14, 2019 Preoperative Diagnosis symptomatic gallstones Postoperative Diagnosis same Operation/Procedure Performed laparoscopic cholecystectomy Surgeon see signature line Banjo Repairer Gio Rosario Anesthesia Type: general Estimated Blood Loss: 0 - 10 ml's Transfusion none Specimen gallbladder Grafts/Implants none Complications none Pt Condition Post Procedure: stable Indications This is a 23-year-old female with symptomatic gallstones. She requests surgical excision of the gallbladder. Risks alternatives benefits personally discussed the patient. Patient expressed understanding and consents to the operation. Procedure Description Patient is taken to the OR and prepped and draped in usual sterile fashion. Surgical time was performed. IV antibiotics given. Infraumbilical transverse incision was made at the 15 blade. Dissection with cardiac clearance of fascia. Fascia was grasped with Julissa's and divided with curved scissors. 0 Vicryl stitches placed into the fascia. Murphy trocar was introduced. Pneumoperitoneum is established. Midepigastric 12 mm optical trochars placed in the direct position. Right upper quadrant upper flank 5 mm optical trochars were placed under direct position. Upon initial inspection there are some adhesions to gallbladder which were taken down bluntly. The gallbladder was grasped with the fundus and traction lateral cephalad direction. [place] graspers were used to dissect out the cystic duct and cystic artery. The critical view was established. The cystic duct is divided with 3 clips proximally one clip distal and the divisions performed laparoscopic scissors. Cystic artery was divided 3 clips proximal to distal and the divisions performed lap scopic scissors. The gallbladder was seen of the gallbladder bed. Minimal suction irrigation was used. Good hemostasis established in the gallbladder bed and surgical site. The gallbladder was achieved using Endo Catch bag. Ports are removed under direct visualization. Over the creases down. Skin is closed and skin bj. A tap block was provided by the anesthesiologist. Dry dressings were applied. Jourdan VARELA Feb 14, 2019 14:14
[2019-02-14] MEDS ORDERED: SUGAMMADEX SODIUM 200 MG/2 ML VIAL IV ONE (14:15)
--- NOTE | 2019-02-14 14:25 | PAC ---
Date/Time of Note Date/Time of Note DATE: 02/14/19 TIME: 14:25 Post-Anesthesia Notes Post-Anesthesia Note Last documented vital signs Vital Signs Date Temp Pulse Resp B/P (MAP) Pulse Ox O2 O2 Flow FiO2 Time Delivery Rate 02/14/19 97.9 65 16 102/64 95 Room Air 09:54 (77) Activity: WNL Respiratory function: WNL Cardiovascular function: WNL Mental status: Baseline Pain reasonably controlled: Yes Hydration appropriate: Yes Nausea/Vomiting absent: Yes Ismael Brown M.D. Feb 14, 2019 14:25
[2019-02-14] MEDS: FENTAnyl 50 MCG/ML VIAL IV PRN ×2 (14:28→14:43)
[2019-02-14] MEDS ORDERED: HYDROCODONE/APAP (5/325) TAB PO ONE (14:30)
== END 2019-02-14 15:59 | disposition home or self-care (01) ==
LOC: SDS 08:57
PROVIDERS: ATTEND Surgery
DX: K80.10 Calculus of gallbladder with chronic cholecystitis without obstruction (principal)
CPT/HCPCS: 47562; 84703; J0690; J1100; J2250; J2405; J2710; J2795; J3010; Z7512; Z7610; 88304